=== PATIENT | female | born 1950 | race Caucasian/White ===

== ENCOUNTER → 2019-09-23 13:33 | Outpatient (CLI) | payer MEDICARE, SELFPAY ==
--- NOTE | ~2019-09-23 | MM_ITS ---
EXAMINATION: MM screening [facility] BI w waqas HISTORY: Screening mammogram TECHNIQUE: Craniocaudal and mediolateral oblique 3-D tomosynthesis images were obtained and synthetic 2-D images were generated. CAD analysis was submitted and interpreted. COMPARISON: Comparison to multiple prior studies sequentially, with oldest reviewed study dated 01/12. BREAST PARENCHYMAL COMPOSITION: There are scattered areas of fibroglandular density. FINDINGS: There are developing asymmetries in the upper outer quadrant of the left breast. The right breast is stable without evidence for malignancy. IMPRESSION: 1. Developing left breast asymmetry. 2. Additional mammographic views and possible breast ultrasound are recommended. BI-RADS Category 0: Incomplete: Needs additional imaging evaluation. Reviewed, dictated and finalized at location A. ER FITTER IMPRESSION: 1. Developing left breast asymmetry. 2. Additional mammographic views and possible breast ultrasound are recommended . BI-RADS Category 0: Incomplete: Needs additional imaging evaluation.
== END ==
PROVIDERS: PCP Family Medicine; Visit Provider Internal Medicine
DX: Z12.31 Encounter for screening mammogram for malignant neoplasm of breast (principal); R92.8 Other abnormal and inconclusive findings on diagnostic imaging of breast
CPT/HCPCS: 77063; 77067

== ENCOUNTER 2019-11-18 13:14 | Outpatient (CLI) | payer MEDICARE, SELFPAY ==
--- NOTE | ~2019-11-18 | MMUS_ITS ---
EXAMINATION: MM diagnostic mammo unilat LT, US breast LT limited HISTORY: TECHNIQUE: Additional 3-D tomosynthesis images of were performed and synthetic 2-D images were genera lisa. CAD analysis was submitted and interpreted. High resolution upper inner and upper outer quadrant left breast ultrasound was performed. COMPARISON: 09/23/2019, 01/12/2018 bilateral digital screening mammogram examinations FINDINGS: MAMMOGRAPHIC FINDINGS: There is fibroglandular asymmetry compared to the right breast on prior mammogram of 09/23/2019, but n o discrete mass lesion or suspicious architectural distortion is appreciated on these supplemental vi ews. ULTRASOUND: There is no evidence of focal abnormal solid or cystic lesion in the upper inner or upper outer quadr ants of the left breast. IMPRESSION: 1. No mammographic evidence of malignancy 2. Routine mammographic screening BI-RADS Category 2: Benign finding(s). Reviewed, dictated and finalized at location A. IMPRESSION: 1. No mammographic evidence of malignancy 2. Routine mammographic screening BI-RADS Category 2: Benign finding(s).
== END 2019-11-18 13:15 | disposition home or self-care (01) ==
LOC: ANHIMG 13:20
DX: R92.8 Other abnormal and inconclusive findings on diagnostic imaging of breast (principal)
CPT/HCPCS: 76642; 77065

== ENCOUNTER → 2020-12-05 13:55 | Outpatient (CLI) | payer MEDICARE, SELFPAY ==
--- NOTE | ~2020-12-05 | MM_ITS ---
EXAMINATION: MM screening [facility] BI w waqas HISTORY: Screening mammogram, family history of breast cancer in her sister. TECHNIQUE: Craniocaudal and mediolateral oblique 3-D tomosynthesis images were obtained and synthetic 2-D images were generated. CAD analysis was submitted and interpreted. COMPARISON: 11/18/2019, 09/23/2019, 01/12/2018 BREAST PARENCHYMAL COMPOSITION: There are scattered areas of fibroglandular density. FINDINGS: Stable asymmetry is present in the middle third of the outer left breast on the craniocauda l view. There is no evidence of suspicious mass, calcification, or architectural distortion to sugges t malignancy in either breast. There has been no suspicious interval change. IMPRESSION: 1. No mammographic evidence of malignancy. 2. Recommend routine screening mammography in one year. BI-RADS Category 2: Benign finding(s). Reviewed, dictated and finalized at location A.
== END ==
PROVIDERS: PCP Family Medicine; Visit Provider Family Medicine
DX: Z12.31 Encounter for screening mammogram for malignant neoplasm of breast (principal)
CPT/HCPCS: 77063; 77067

== ENCOUNTER 2023-03-06 12:40 | Outpatient (CLI) | payer MEDICARE, SELFPAY ==
--- NOTE | ~2023-03-06 | MM_ITS ---
EXAMINATION: MM screening [facility] BI w waqas HISTORY: Screening mammogram, family history of breast cancer in her sister. TECHNIQUE: Craniocaudal and mediolateral oblique 3-D tomosynthesis images were obtained and synthetic 2-D images were generated. CAD analysis was submitted and interpreted. COMPARISON: 12/05/2020, 11/18/2019, 09/23/2019, 01/12/2018 BREAST PARENCHYMAL COMPOSITION: There are scattered areas of fibroglandular density. FINDINGS: No suspicious mass, calcification, or architectural distortion are identified in either sofie ast to suggest malignancy. There has been no suspicious interval change. IMPRESSION: 1. No mammographic evidence of malignancy. 2. Recommend routine screening mammography in one year. BI-RADS Category 1: Negative Reviewed, dictated and finalized at location A.
== END 2023-03-06 12:41 | disposition home or self-care (01) ==
LOC: CHSIMG 12:41
PROVIDERS: PCP Internal Medicine; Visit Provider Internal Medicine
DX: Z12.31 Encounter for screening mammogram for malignant neoplasm of breast (principal)
CPT/HCPCS: 77063; 77067

== ENCOUNTER 2023-11-24 08:49 | Outpatient (CLI) | payer MEDICARE, SELFPAY ==
--- NOTE | ~2023-11-24 | MR_ITS ---
MRI of the lumbar spine Clinical History: Back pain Technique: Axial T2-weighted images, and sagittal T1-weighted, T2-weighted, and and T2 fat-sat images were acquired. Findings: There is acute compression fracture of L2, with mild loss of height, transverse fracture li ne, and associated marrow edema. There is probable posterior fusion hardware at the L3-L4 levels with associated susceptibility artifact about the posterior elements. No other fracture or subluxation. T here is underlying scoliotic change of the L-spine. No other suspicious bone marrow signal abnormalit y seen. At L1-L2, there is no disc bulge or herniation. There is possible fusion across the facet joints. No spinal canal stenosis. Possible mild to moderate right neural foraminal narrowing. Left neural forame n preserved. At L2-L3, there is no disc bulge or herniation. Probable fusion across the facet joints. No definite spinal canal stenosis. Possible moderate to advanced right neural foraminal narrowing. Left neural fo ramen is preserved. At L3-L4, there is severe degenerative disc narrowing. There is mild disc bulge with probable severe facet arthropathy. No definite kilo canal stenosis. There is moderate bilateral neural foraminal soheila rowing. At L4-L5, there is advanced degenerative disc narrowing. There is mild disc bulge with severe facet a rthropathy. No kilo central canal stenosis. There is moderate to severe right neural foraminal narro wing. Left neural foramen preserved. At L5-S1, there is minimal disc bulge and advanced facet arthropathy. No central canal stenosis. No d efinite neural foraminal narrowing. Paravertebral soft tissues are unremarkable. Impression: Acute L2 compression fracture, as above. Moderate degenerative spondylosis, as above. Postoperative change, as above. Reviewed, dictated and finalized at [facility]. Impression: Acute L2 compression fracture, as above. Moderate degenerative spondylosis, as above. Postoperative change, as above.
== END 2023-11-24 08:50 | disposition home or self-care (01) ==
LOC: ANHIMG 08:54
PROVIDERS: PCP Internal Medicine; Visit Provider Internal Medicine
DX: S32.020A Wedge compression fracture of second lumbar vertebra, initial encounter for closed fracture (principal); X58.XXXA Exposure to other specified factors, initial encounter; M47.896 Other spondylosis, lumbar region
CPT/HCPCS: 72148

== ENCOUNTER 2023-12-31 12:51 | Outpatient (CLI) | payer MEDICARE, SELFPAY ==
--- NOTE | ~2023-12-31 | DEXA_ITS ---
? Bone Density Report? Name:? BIB GONZALEZ Patient ID:??? [id number] Age:? 73 Sex:? Female Ethnicity:? White Date of : 1950 Indication: postmenopausal; screening for osteoporosis; height loss; prior fracture; Referring Provider: SHEKHAR, STANLEY Nolasco Study: Bone densitometry was performed. Exam Date: December 31, 2023 Accession number: [id number] Bone Density: Region? BMD??? T-score? Z-score?? Classification AP Spine(L1-L4)? 1.482??? 4.0?6.2? Normal Femoral Neck (Left)? 0.595?? -2.3? -0.3? Osteopenia Total Hip (Left)? 0.770?? -1.4? 0.2? Osteopenia Femoral Neck (Right)? 0.585?? -2.4? -0.4? Osteopenia Total Hip (Right)? 0.737?? -1.7? 0.0? Osteopenia Femoral Neck Mean? 0.590?? -2.3? -0.4? Osteopenia Total Hip Mean? 0.753?? -1.5? 0.1? Osteopenia World Health Organization criteria for BMD impression classify patients as: Normal (T-score at or above -1.0), Osteopenia (T-score between -1.0 and -2.5), or Osteoporosis (T-score at or below -2.5). 10-year Fracture Risk: FRAX not reported because: ? Prior hip or vertebral fracture Clinical Information Provided by Patient: Have had a previous hip or vertebral fracture Has had a low trauma fracture Has used the following medications: Fosamax (i.e. alendronate), Vitamin D, Calcium Patient maximum height was 63 Menopause Age: 56 Drinks caffeinated beverages Onset of menses at age 16 Number of children 4 Impression: The patient has low bone mass, based on the Right Femoral Neck T- score. The patient has risk factors, including: previous fracture. Discussion: INCREASED RISK OF FRACTURE DUE TO HISTORY OF FRACTURE. The patient's previous fracture puts the patient at high risk of a future fracture. In untreated patients, the risk of osteoporotic fracture increases approximately two-fold for each 1.0 SD decrease in T-score.? Low bone density is not the only risk factor for fracture; also consider factors such as patient's age, frailty or poor health, risk of falling, risk of injury, previous osteoporotic fracture, family history of osteoporosis, cigarette smoking, low body weight, etc.? Not everyone with a low trauma fracture has osteoporosis; osteomalacia and other metabolic bone disorders should also be considered. Patients who have osteoporosis should be evaluated for specific diseases and conditions (secondary causes) that may cause or contribute to bone loss and fracture risk. National Osteoporosis Foundation (NOF) recommends pharmacologic intervention for patients with a prior hip or vertebral fracture regardless of BMD T-score. The patient should follow a healthful lifestyle (good nutrition with adequate calcium a
== END 2023-12-31 12:52 | disposition home or self-care (01) ==
LOC: CHSIMG 12:52
PROVIDERS: PCP Internal Medicine; Visit Provider Internal Medicine
DX: Z78.0 Asymptomatic menopausal state (principal); M85.89 Other specified disorders of bone density and structure, multiple sites
CPT/HCPCS: 77080

== ENCOUNTER 2024-02-09 13:58 | Outpatient (CLI) | payer MEDICARE, SELFPAY ==
--- NOTE | ~2024-02-09 | CT_ITS ---
CT lumbar spine wo con Ordering provider: Carolyn De Anda, DEPENDENCY COUNSELOR History: 73 years Female with . Hx of back surgery scoliosis . Comparison: None. Technique: CT lumbar spine without contrast. Automated exposure control and iterative reconstruction technique were employed. The dose-length product was 520.12 mGy-cm. FINDINGS: VERTEBRAE: Loss of volume of L2 most likely chronic. Otherwise,. Normal height and alignment. No subl uxation or visible acute fracture. Postoperative changes. Dextroscoliosis. Posterior fusion of the th oracolumbar area. DISC SPACES: Degenerative disc disease at the level of L3-L4 and L4-L5. Multilevel facet joint disease. PARASPINOUS SOFT TISSUES: Mild atheromatous disease of the abdominal aorta. Hypodensity in the left lobe of the liver most likely a cyst. IMPRESSION: Scoliosis with fixation. Old compression fracture of L2. Multilevel degenerative disc disease. Multilevel facet joint disease. Reviewed, dictated and finalized at location A.
== END 2024-02-09 13:59 ==
LOC: GOSHIMG 13:58
PROVIDERS: PCP Internal Medicine; Visit Provider Nurse Practitioner
DX: M41.9 Scoliosis, unspecified (principal); M51.36 Other intervertebral disc degeneration, lumbar region
CPT/HCPCS: 72131

== ENCOUNTER 2024-03-07 12:54 | Outpatient (CLI) | payer MEDICARE, SELFPAY ==
--- NOTE | ~2024-03-07 | MM_ITS ---
EXAMINATION: MM screening [facility] BI w waqas HISTORY: Screening TECHNIQUE: Craniocaudal and mediolateral oblique 3-D tomosynthesis images were obtained and synthetic 2-D images were generated. CAD analysis was submitted and interpreted. COMPARISON: Comparison to multiple prior studies sequentially, with oldest reviewed study dated 01/12. BREAST PARENCHYMAL COMPOSITION: Not dense: There are scattered areas of fibroglandular density. FINDINGS: There is no evidence of suspicious mass, calcification, or architectural distortion to sugg est malignancy in either breast. There has been no suspicious interval change. IMPRESSION: 1. No mammographic evidence of malignancy. 2. Recommend routine screening mammography in one year. BI-RADS Category 1: Negative Reviewed, dictated and finalized at location B.
== END 2024-03-07 12:55 | disposition home or self-care (01) ==
LOC: CHSIMG 12:55
PROVIDERS: PCP Internal Medicine; Visit Provider Internal Medicine
DX: Z12.31 Encounter for screening mammogram for malignant neoplasm of breast (principal)
CPT/HCPCS: 77063; 77067